=== PATIENT | female | born 1955 | race Caucasian/White ===

== ENCOUNTER → 2017-06-05 | Outpatient (REF) | payer BC | LOC: M LAB REF 09:37 | PROVIDERS: ATTEND Physician Assistant | DX: N30.00 Acute cystitis without hematuria (principal) ==

== ENCOUNTER → 2019-02-05 | Outpatient (REF) | payer BC | LOC: M LAB REF 15:08 | PROVIDERS: ATTEND Physician Assistant | DX: N39.0 Urinary tract infection, site not specified (principal) ==

== ENCOUNTER 2019-02-15 05:34 | Day surgery (SDC) | payer BC ==
[~2019-02-15] VITALS: Ht 157.5 cm; Wt 49.4 kg
[2019-02-15] MEDS ORDERED: LIDOCAINE 1% MDV 20ML VIAL SQ PRN (06:00)
[2019-02-15] MEDS ORDERED: ACETAMINOPHEN 325 MG TAB PO PRN (06:00)
[2019-02-15] MEDS ORDERED: BALANCED SALT IRRIGATION SOLUTION 500ML BAG (FOR OR EYE MACHINE) As Ordered ONE (06:43)
[2019-02-15] MEDS ORDERED: POVIDONE-IODINE 5% OPHTH PREP SOL 30ML As Ordered ONE (06:43)
[2019-02-15] MEDS ORDERED: CEFUROXIME 1MG/0.1ML INTRACAMERAL INJ As Ordered ONE (06:44)
[2019-02-15] MEDS ORDERED: DUOVISC (0.50ML VISCOAT/0.55ML PROVISC) OPHTH KIT As Ordered ONE (06:45)
[2019-02-15] MEDS ORDERED: LIDOCAINE 0.75%/EPINEPHRINE 0.025% IN BSS 1ML SYR INTRACAMERAL (OR ONLY) As Ordered ONE (06:45)
[2019-02-15] MEDS ORDERED: MIDAZOLAM INJ 2 MG/2 ML VIAL (J2250) As Ordered ONE (06:47)
[2019-02-15] MEDS ORDERED: fentaNYL 100 MCG/2 ML INJECTION (J3010) As Ordered ONE (06:47)
[2019-02-15] MEDS ORDERED: OFLOXACIN 0.3 % (OCUFLOX) OPTH SOL 5ML OS ONE (07:00)
[2019-02-15] MEDS ORDERED: PHENYLEPHRINE 2.5% OPHTH SOL 2ML OS ONE (07:00)
[2019-02-15] MEDS ORDERED: PROPARACAINE 0.5% OPHTH SOL 15ML OS ONE (07:00)
[2019-02-15] MEDS ORDERED: TROPICAMIDE 1% OPHTH SOLN 2ML OS ONE (07:00)
[2019-02-15] MEDS ORDERED: TRIMETHOBENZAMIDE 300 MG CAP PO PRN (08:15)
[2019-02-15 08:30] VITALS: BP 100/57
[2019-02-15] MEDS ORDERED: ONDANSETRON 4MG/2ML VIAL (J2405) IV PRN (08:30)
--- NOTE | 2019-02-17 10:00 | RO ---
DATE OF PROCEDURE: 02/15/2019 PREOPERATIVE DIAGNOSES: 1. Visually significant nuclear sclerotic cataract left eye. 2. Astigmatism left eye. POSTOPERATIVE DIAGNOSES: 1. Visually significant nuclear sclerotic cataract left eye. 2. Astigmatism left eye. PROCEDURE: 1. Cataract extraction with use of phacoemulsification, and placement of intraocular lens, SND1TF, 27.5 D at 91 degrees, left eye, with use of femtosecond laser and intraoperative aberrometry. 2. Placement of limbal relaxing incisions left eye. SURGEON: Vinod Ibarra DO [employer] [place]: None. ANESTHESIA: Local with monitored anesthesia care (MAC). COMPLICATIONS: None POSTOPERATIVE CONDITION: Stable INDICATIONS FOR SURGERY: 1. Blurred vision affecting patients activities of daily living. DESCRIPTION OF PROCEDURE: The patient was seen in the preoperative area and properly identified. The correct operative eye was identified and marked. The patient received topical anesthetic, antibiotics, and topical dilating drops. The patient was then transferred to the laser room. The patient was positioned under the laser. A timeout was performed. The laser was applied. A 4.8 mm capsulotomy, fragmentation, and limbal relaxing incisions were created. The patient tolerated the procedure well and was transferred to the operating room. The correct side was re-identified and a timeout was performed. The eye was prepped and draped in a sterile fashion. The eyelids were isolated with Tegaderm tape and the lids were held open with an adjustable speculum. A 1.0 mm paracentesis incision was made. Intraocular preservative free Shugarcaine was then injected into the anterior chamber. Viscoelastic was then injected into the anterior chamber through the paracentesis. Using a 2.4 mm sharp-tipped keratome, the anterior chamber was entered via a temporal clear cornea incision. Utrata forceps were used to removed the free floating capsulotomy. Hydrodissection was performed with BSS on a blunt cannula until the nucleus was able to rotate freely. The crystalline lens was phacoemulsified and aspirated. Irrigation/aspiration was used to remove the cortical material Cohesive viscoelastic was placed into the capsular bag to deepen it. The implant was placed into the capsular bag and allowed to unfold. Placement was confirmed by visualizing the anterior capsulorrhexis. Irrigation/aspiration was used to remove the viscoelastic. The clear corneal incision was hydrated with BSS on a blunt cannula. The lens was well positioned. The incisions were then tested for leaks and found to be negative. The eye was then palpated for appropriate pressure and adjusted accordingly with BSS. The eyelid speculum was then carefully removed. A shield was placed over the eye. The patient tolerated the procedure well and was discharge to the recovery unit in a stable condition.
== END 2019-02-15 08:40 | disposition home or self-care (01) ==
LOC: M SDC 05:34
PROVIDERS: ATTEND Ophthalmology
DX: H25.12 Age-related nuclear cataract, left eye (principal); H52.202 Unspecified astigmatism, left eye
CPT/HCPCS: 65772; 66984; J2250; J3010

== ENCOUNTER → 2019-07-12 | Outpatient (REF) | payer BC | LOC: M LAB LCGH 13:28 | PROVIDERS: ATTEND Physician Assistant | DX: Z12.4 Encounter for screening for malignant neoplasm of cervix (principal) ==